=== PATIENT | male | born 1970 | race Caucasian/White ===

== ENCOUNTER 2018-07-23 23:38 | Emergency (ER) | payer BC, MEDICAID ==
[2018-07-24] MEDS: IBUPROFEN 600 MG TAB PO (01:05)
[2018-07-24] MEDS: HYDROCODONE/APAP (10/325) TAB PO (01:05)
== END 2018-07-24 01:49 | disposition home or self-care (01) ==
LOC: FTE 23:38
DX: K08.9 Disorder of teeth and supporting structures, unspecified (principal); F17.210 Nicotine dependence, cigarettes, uncomplicated
CPT/HCPCS: 99283